=== PATIENT | female | born 1990 | race Caucasian/White ===

== ENCOUNTER 2023-07-05 09:32 | Outpatient (OUT) | payer OTHER, SELFPAY ==
[2023-07-05 09:57] LABS: Basophils Absolute Auto 0.1 10^3/uL (0.0-0.1); Basophils Percent Auto 0.9 % (0.2-2.0); Eosinophils Absolute Auto 0.3 10^3/uL (0.0-0.7); Eosinophils Percent Auto 3.1 % (0.9-7.0); Hematocrit 43.5 % (36.0-48.0); Hemoglobin 13.8 g/dL (12.0-16.0); Immature Granulocytes Abs Auto 0.03 10^3/uL (0.00-0.03); Immature Granulocytes Pct Auto 0.4 % (0.0-0.5); Lymphocytes Absolute Auto 2.3 10^3/uL (1.2-3.8); Mean Corpuscular HGB Conc 31.7 g/dL (29.9-35.2); Mean Corpuscular Hemoglobin 28.3 pg (26.7-34.0); Mean Corpuscular Volume 89.3 fL (81.0-99.0); Mean Platelet Volume 8.6 fL (9.5-13.5); Monocytes Absolute Auto 0.4 10^3/uL (0.3-0.8); Monocytes Percent Auto 5.3 % (1.7-12.0); Neutrophils Absolute Auto 5.1 10^3/uL (1.4-6.5); Neutrophils Percent Auto 62.3 % (43.0-75.0); Platelet Count 351 10^3/uL (150-450); Red Blood Count 4.87 10^6/uL (4.20-5.40); White Blood Count 8.1 10^3/uL (4.0-11.0)
[2023-07-05 10:13] LABS: Estimated Average Glucose 120 mg/dL; Glycohemoglobin A1C 5.8 % (4.5-6.2)
[2023-07-05 10:42] LABS: Alanine Aminotransferase 26 U/L (14-59); Albumin Globulin Ratio 1.1; Albumin Level 4.1 g/dL (3.4-5.0); Alkaline Phosphatase 64 U/L (46-116); Anion Gap 15.1; Aspartate Amino Transferase 14 U/L (15-37); BUN Creatinine Ratio 14.1; Bilirubin Total 0.3 mg/dL (0.2-1.0); Calcium 9.2 mg/dL (8.5-10.1); Carbon Dioxide 24.1 mmol/L (21.0-32.0); Chloride 105 mmol/L (98-107); Chol HDL Ratio 2.8; Cholesterol 153 mg/dL (<=200); Estimated GFR (African America >60 (>=60); Estimated GFR (Non-African Ame >60 (>=60); Globulin 3.8 g/dL; Glucose 99 mg/dL (74-106); HDL Cholesterol 54 mg/dL (40-60); LDL Cholesterol Calculated 88.6 mg/dL; Potassium 4.2 mmol/L (3.5-5.1); Sodium 140 mmol/L (136-145); Thyroid Stimulating Hormone 2.218 uIU/mL (0.358-3.740); Total Protein 7.9 g/dL (6.4-8.2); Triglycerides 52 mg/dL (<=150); VLDL CHOLESTEROL 10.4 mg/dL
[2023-07-06 04:10] LABS: Estradiol 50.4 pg/mL (.); FSH 9.7 mIU/mL (.)
== END 2023-07-05 09:33 | disposition home or self-care (01) ==
LOC: LAB 09:35
PROVIDERS: PCP Family Medicine; Visit Provider Family Medicine
DX: Z00.00 Encounter for general adult medical examination without abnormal findings (principal); Z78.0 Asymptomatic menopausal state
CPT/HCPCS: 36415; 80053; 80061; 82670; 83001; 83036; 84443; 85025

== ENCOUNTER 2023-08-03 21:15 | Outpatient (REF) | payer OTHER, SELFPAY ==
[2023-08-09 09:08] LABS: Age Gdln ACOG Testing Note (.); HPV Aptima Negative (Negative); IGP, Aptima HPV, rfx 16/18,45 Note (.)
== END 2023-08-03 21:16 | disposition home or self-care (01) ==
LOC: LAB 21:15
PROVIDERS: PCP Family Medicine; Visit Provider Obstetrics & Gynecology
DX: Z12.4 Encounter for screening for malignant neoplasm of cervix (principal)
CPT/HCPCS: G0145

== ENCOUNTER 2023-10-12 17:25 | Emergency (ER) | payer OTHER, SELFPAY ==
[2023-10-12] VITALS (23 sets, daily range): BP systolic 121–144; BP diastolic 81–97; PULSE 97–124; RESP 15–31; TEMP 36.6–38.1; O2SAT 95–98; BMI 37.4
--- NOTE | 2023-10-12 18:19 | XR_ITS ---
[facility] [id number] Patient Name: BUSHRA PEACE MRN: [id number] date: 1990 Sex: F Assigned Patient Location: ER Current Patient Location: ER Accession/Order Number: [id number] Exam Date: 10/12/2023 18:33 Report Date: 10/12/2023 19:15 At the request of: JAVED PARTIDA Procedure: XR chest 1V EXAMINATION: XR chest 1V, , 10/12/2023 6:33 PM EST INDICATION: cough, SOB HISTORY: Ordering Provider Reason for Exam: cough, SOB Technologist Note: Additional: COMPARISON: None. TECHNIQUE: Chest x-ray: One view. FINDINGS: No pneumothorax, pleural effusion or focal airspace consolidation. Heart is normal in size. Bony thorax is unremarkable. XR/XR chest 1V IMPRESSION: No acute cardiopulmonary process. Electronically authenticated by: VINAY WYNNE Date: 10/12/2023 19:15
--- NOTE | 2023-10-12 18:20 | ED_ITS ---
HPI - URI/Sore Throat General Chief Complaint: Upper Respiratory Infection Stated Complaint: Flu Like Symptoms Time Seen by Provider: 10/12/23 18:12 Source: patient Limitations: no limitations History of Present Illness HPI Narrative: 32 year old female presents to the ED for cough, SOB, body aches, fatigue, N/V. Onset was a few days ago. She was diagnosed with influenza B at an urgent care yesterday. Reports left chest discomfort with inspiration, cough. She is concerned about a ruptured AAA due to the pain; her father 2 years ago from a ruptured AAA. Denies abd pain, diarrhea. She presented febrile. States she was unable to keep her Tylenol down at home. Denies chance of . Related Data Previous Rx's Medication Instructions Recorded ondansetron 4 mg disintegrating 4 mg PO Q8H PRN nausea and 10/12/23 tablet vomiting 4 days #12 tabs Allergies Allergy/AdvReac Type Severity Reaction Status Date / Time No Known Drug Allergies Allergy Verified 10/12/23 17:28 Review of Systems ROS Constitutional Reports: fever, chills and fatigue Cardiovascular Denies: chest pain Respiratory Reports: shortness of breath and cough Gastrointestinal Reports: nausea and vomiting; Denies: abdominal pain or diarrhea Musculoskeletal Denies: back pain or neck pain Integumentary/Breast Denies: rash Neurological Reports: headache PFSH PFSH Social History Smoking status: Former smoker Exam Constitutional Vital Signs, click to edit/add: Last Vital Signs Temp 98 F 10/12/23 20:25 Pulse 103 H 10/12/23 20:50 Resp 28 H 10/12/23 20:50 BP 121/91 10/12/23 20:45 Pulse Ox 96 10/12/23 20:50 O2 Del Method Room Air 10/12/23 17:28 Common normals: no apparent distress and oriented x3 HENMT Face and sinus: normal facial exam Nose: external nose normal External ear: external ears normal Mouth: tongue normal; no drooling Other: MM dry Eye Common normals: conjunctivae normal and no scleral icterus Neck & C-Spine Common normals: supple Chest Chest: symmetrical chest wall rise Respiratory Effort & inspection: able to speak in complete sentences, symmetric chest movement and tachypneic Auscultation: diminished lung sounds Cardio Rate: tachycardic Rhythm: regular rhythm GI Common normals: soft to palpation and non-tender Neuro Common normals: oriented x3 Sensorium/orientation: awake and alert Speech: speech normal Course Vital Signs Vital signs: Vital Signs Temperature 100.6 F H 10/12/23 17:28 Pulse Rate 113 H 10/12/23 17:28 Respiratory Rate 20 10/12/23 17:28 Blood Pressure 136/97 H 10/12/23 17:28 Pulse Oximetry 98 10/12/23 17:28 Oxygen Delivery Method Room Air 10/12/23 17:28 Temperature 98 F 10/12/23 20:25 Pulse Rate 103 H 10/12/23 20:50 Respiratory Rate 28 H 10/12/23 20:50 Blood Pressure 121/91 10/12/23 20:45 Pulse Oximetry 96 10/12/23 20:50 Oxygen Delivery Method Room Air 10/12/23 17:28 MDM - URI/Sore Throat MDM Narrative Medical decision making narrative: Imaging was negative for acute findings. Laboratory studies were unremarkable. She was given IV fluids and medication with improvement. She requested to be discharged home. A prescription was provided for Zofran. Follow up with pcp for a recheck, further evaluation and treatment. Differential Diagnosis Differential diagnosis: Likely upper respiratory infection, viral infection and influenza Medical Records Attestation: I reviewed the patient's medical records. Lab Data Attestation: I reviewed the patient's lab results. Labs: Lab Results 10/12/23 Range/Units 18:25 WBC 8.4 (4.0-11.0) 10^3/uL RBC 4.91 (4.20-5.40) 10^6/uL Hgb 13.9 (12.0-16.0) g/dL Hct 44.9 (36.0-48.0) % MCV 91.4 (81.0-99.0) fL MCH 28.3 (26.7-34.0) pg MCHC 31.0 (29.9-35.2) g/dL RDW 12.2 (11.0-15.0) % Plt Count 301 (150-450) 10^3/uL MPV 9.3 L (9.5-13.5) fL Neut % (Auto) 77.1 H (43.0-75.0) % Lymph % (Auto) 14.4 L (20.5-60.0) % Mcdowell % (Auto) 6.5 (1.7-12.0) % Eos % (Auto) 1.1 (0.9-7.0) % Baso % (Auto) 0.5 (0.2-2.0) % Neut # (Auto) 6.5 (1.4-6.5) 10^3/uL Lymph # (Auto) 1.2 (1.2-3.8) 10^3/uL Mcdowell # (Auto) 0.5 (0.3-0.8) 10^3/uL Eos # (Auto) 0.1 (0.0-0.7) 10^3/uL Baso # (Auto) 0.0 (0.0-0.1) 10^3/uL Abs Immat Gran (auto) 0.03 (0.00-0.03) 10^3/uL Imm/Tot Granulo (auto) 0.4 (0.0-0.5) % Sodium 136 (136-145) mmol/L Potassium 3.7 (3.5-5.1) mmol/L Chloride 102 (98-107) mmol/L Carbon Dioxide 19.4 L (21.0-32.0) mmol/L Anion Gap 18.3 BUN 10.0 (7.0-18.0) mg/dL Creatinine 0.90 (0.55-1.02) mg/dL Est GFR ( Amer) >60 (>=60) Est GFR (Non-Af Amer) >60 (>=60) BUN/Creatinine Ratio 11.1 Glucose 96 (74-106) mg/dL Calcium 9.1 (8.5-10.1) mg/dL Imaging Data Chest x-ray: Attestation: I have reviewed the pertinent imaging results. Radiologist's impression: Procedure: XR chest 1V EXAMINATION: XR chest 1V, , 10/12/2023 6:33 PM EST INDICATION: cough, SOB HISTORY: Ordering Provider Reason for Exam: cough, SOB Technologist Note: Additional: COMPARISON: None. TECHNIQUE: Chest x-ray: One view. FINDINGS: No pneumothorax, pleural effusion or focal airspace consolidation. Heart is normal in size. Bony thorax is unremarkable. XR/XR chest 1V IMPRESSION: No acute cardiopulmonary process. Electronically authenticated by: VINAY WYNNE Date: 10/12/2023 19:15 CT scan - chest: Attestation: I have reviewed the pertinent imaging results. Radiologist's impression: Procedure: CT angio chest EXAMINATION: CHEST CT WITH CONTRAST (PULMONARY EMBOLISM PROTOCOL) Indication: SOB Technique: Spiral CT acquisition of the chest from the thoracic inlet to the upper abdomen following IV contrast. Maximum intensity projection (MIP)reconstructions were performed. All CT scans at this facility use dose modulation, iterative reconstruction, and/or weight based dosing when appropriate to reduce radiation dose to as low as reasonably achievable. Contrast: 100 mL of Omnipaque 350 IV Comparison: Chest radiograph 10/12/2023 RESULT: Limitations: None. Evaluation for thromboembolic disease: - Right heart chambers: No thromboembolic disease. - Main pulmonary arteries: No thromboembolic disease. - Lobar pulmonary arteries: No thromboembolic disease. - Segmental pulmonary arteries: No thromboembolic disease. - Subsegmental pulmonary arteries: No thromboembolic disease. Lines, tubes, and devices: None. Lung parenchyma and pleura: Mild mosaic attenuation in the mid to lower lung zones, likely secondary to small airways disease. No consolidation. No suspicious pulmonary nodule. No pleural effusion. Central airways are patent. Thoracic inlet, heart, and mediastinum: No lymphadenopathy in the axillary, mediastinal, or hilar regions. The thoracic aorta and main pulmonary artery are normal in caliber. The cardiac chambers are normal in size. No coronary artery atherosclerotic calcifications are noted, although the study is not optimized for coronary assessment. No pericardial effusion or thickening. Thyroid gland is unremarkable. Esophagus is nondilated. Bones and soft tissues: No destructive bone lesion. Chest wall is unremarkable. Upper abdomen: Hepatic steatosis. . CT/CT angio chest IMPRESSION: No CT evidence of pulmonary embolism or acute findings in the thorax. Mild mid to lower lung zone mosaic attenuation, likely secondary to small airways disease.. Electronically authenticated by: CALVIN CLAYTON Date: 10/12/2023 20:11 Discharge Plan Discharge Chief Complaint: Upper Respiratory Infection Clinical Impression: Influenza B, Nausea & vomiting Patient Disposition: Home, Self-Care Time of Disposition Decision: 21:28 Condition: Good Mode of Transportation: Private Vehicle Prescriptions / Home Meds: New ondansetron 4 mg tablet,disintegrating 4 mg PO Q8H PRN (Reason: nausea and vomiting) 4 Days Qty: 12 0RF Instructions: Influenza (ED), Acute Nausea and Vomiting (ED), Dyspnea (ED) Stand Alone Forms: Portal Instructions Referrals: Nena Ramos MD [Primary Care Provider] - As soon as possible
--- NOTE | 2023-10-12 18:56 | CT_ITS ---
The [address] [id number] Patient Name: BUSHRA PEACE MRN: [id number] date: 1990 Sex: F Assigned Patient Location: ER Current Patient Location: Accession/Order Number: [id number] Exam Date: 10/12/2023 19:29 Report Date: 10/12/2023 20:11 At the request of: JAVED PARTIDA Procedure: CT angio chest EXAMINATION: CHEST CT WITH CONTRAST (PULMONARY EMBOLISM PROTOCOL) Indication: SOB Technique: Spiral CT acquisition of the chest from the thoracic inlet to the upper abdomen following IV contrast. Maximum intensity projection (MIP)reconstructions were performed. All CT scans at this facility use dose modulation, iterative reconstruction, and/or weight based dosing when appropriate to reduce radiation dose to as low as reasonably achievable. Contrast: 100 mL of Omnipaque 350 IV Comparison: Chest radiograph 10/12/2023 RESULT: Limitations: None. Evaluation for thromboembolic disease: - Right heart chambers: No thromboembolic disease. - Main pulmonary arteries: No thromboembolic disease. - Lobar pulmonary arteries: No thromboembolic disease. - Segmental pulmonary arteries: No thromboembolic disease. - Subsegmental pulmonary arteries: No thromboembolic disease. Lines, tubes, and devices: None. Lung parenchyma and pleura: Mild mosaic attenuation in the mid to lower lung zones, likely secondary to small airways disease. No consolidation. No suspicious pulmonary nodule. No pleural effusion. Central airways are patent. Thoracic inlet, heart, and mediastinum: No lymphadenopathy in the axillary, mediastinal, or hilar regions. The thoracic aorta and main pulmonary artery are normal in caliber. The cardiac chambers are normal in size. No coronary artery atherosclerotic calcifications are noted, although the study is not optimized for coronary assessment. No pericardial effusion or thickening. Thyroid gland is unremarkable. Esophagus is nondilated. Bones and soft tissues: No destructive bone lesion. Chest wall is unremarkable. Upper abdomen: Hepatic steatosis. . CT/CT angio chest IMPRESSION: No CT evidence of pulmonary embolism or acute findings in the thorax. Mild mid to lower lung zone mosaic attenuation, likely secondary to small airways disease.. Electronically authenticated by: CALVIN CLAYTON Date: 10/12/2023 20:11
[2023-10-12] MEDS: 0.9 % SODIUM CHLORIDE 1,000 ML 999 ML IV (18:57)
[2023-10-12] MEDS: METHYLPREDNISOLONE SOD SUCC PF 125 MG/2 ML VIAL IM (18:57)
[2023-10-12] MEDS: ACETAMINOPHEN 500 MG TABLET 1000 MG PO (18:57)
[2023-10-12] MEDS: ONDANSETRON PF 4 MG/2 ML VIAL IV (18:57)
[2023-10-12 19:00] LABS: Basophils Percent Auto 0.5 % (0.2-2.0); Eosinophils Absolute Auto 0.1 10^3/uL (0.0-0.7); Eosinophils Percent Auto 1.1 % (0.9-7.0); Hematocrit 44.9 % (36.0-48.0); Hemoglobin 13.9 g/dL (12.0-16.0); Immature Granulocytes Abs Auto 0.03 10^3/uL (0.00-0.03); Immature Granulocytes Pct Auto 0.4 % (0.0-0.5); Lymphocytes Absolute Auto 1.2 10^3/uL (1.2-3.8); Lymphocytes Percent Auto 14.4 % (20.5-60.0); Mean Corpuscular Hemoglobin 28.3 pg (26.7-34.0); Mean Corpuscular Volume 91.4 fL (81.0-99.0); Mean Platelet Volume 9.3 fL (9.5-13.5); Monocytes Absolute Auto 0.5 10^3/uL (0.3-0.8); Monocytes Percent Auto 6.5 % (1.7-12.0); Neutrophils Absolute Auto 6.5 10^3/uL (1.4-6.5); Neutrophils Percent Auto 77.1 % (43.0-75.0); Platelet Count 301 10^3/uL (150-450); Red Blood Count 4.91 10^6/uL (4.20-5.40); Red Cell Distribution Width 12.2 % (11.0-15.0); White Blood Count 8.4 10^3/uL (4.0-11.0)
[2023-10-12 19:07] LABS: Anion Gap 18.3; BUN Creatinine Ratio 11.1; Calcium 9.1 mg/dL (8.5-10.1); Carbon Dioxide 19.4 mmol/L (21.0-32.0); Chloride 102 mmol/L (98-107); Estimated GFR (African America >60 (>=60); Estimated GFR (Non-African Ame >60 (>=60); Glucose 96 mg/dL (74-106); Potassium 3.7 mmol/L (3.5-5.1); Sodium 136 mmol/L (136-145)
[2023-10-12] MEDS: LORAZEPAM 2 MG/ML 1 ML VIAL 1 MG IV (19:15)
[2023-10-12] MEDS: METOCLOPRAMIDE HCL 10 MG/2 ML VIAL IVP (21:00)
[2023-10-12] MEDS: KETOROLAC TROMETHAMINE 30 MG/ML VIAL 15 MG IVP (21:00)
[2023-10-12] MEDS: DIPHENHYDRAMINE HCL 50 MG/ML (1ML) VIAL 25 MG IV (21:01)
--- NOTE | 2023-10-12 21:49 | ECG_ITS ---
The [facility] Test Date: 2023-10-12 Pat Name: BUSHRA PEACE Department: Room: - Gender: Female Key Account Coordinator: : 1990 Requested By: JAYMIE NAVA Order Number: [id number] Reading MD: CARLOS MANUEL PATEL Measurements Intervals Wallace Rate: 106 P: 67 OH: 136 QRS: 66 QRSD: 70 T: 270 QT: 280 QTc: 342 Interpretive Statements 1120 Sinus tachycardia [address] depression 4664 Twave abnormality, possible inferior ischemia 8305 Short QTc interval 9150 abnormal ECG No previous ECG available for comparison Electronically Signed On 10-14-2023 7:45:25 EST by CARLOS MANUEL PATEL
== END 2023-10-12 21:45 | disposition home or self-care (01) ==
PROVIDERS: Nurse Practitioner Family; Emergency Provider Emergency Medicine; PCP Family Medicine
DX: J10.1 Influenza due to other identified influenza virus with other respiratory manifestations (principal); R11.2 Nausea with vomiting, unspecified; Z87.891 Personal history of nicotine dependence
CPT/HCPCS: 36415; 71045; 71275; 80048; 85025; 93005; 96361; 96374; 96375; 99285; J2930; Q9967

== ENCOUNTER 2024-09-06 19:25 | Outpatient (REF) | payer BC, SELFPAY ==
--- OUTSIDE RECORDS SUMMARY | 2024-09-06 19:29 | XMS_ITS | CCD ---
Author Organization [facility] CliniSyfl Care Team Providers Care Sales Effectiveness Manager Name Role Phone Rosa Ayon Primary Care Physician Unavailab Panfilo Nagel Rounding Physician Unavailable KOBI TARIQ Referring Unavailable ROSA AYON Primary Care Unavailable RAMOS, DR NENA Hatfield Primary Care Unavailable RAMOS, DR NENA Hatfield Admitting Unavailable RAMOS, DR NENA Hatfield Attending Unavailable RAMOS, DR NENA Hatfield Consulting Unavailable RAMOS, DR NENA Hatfield Primary Care Unavailable PARK, DR REED Attending Unavailable PARK, DR REED Admitting Unavailable RAMOS, DR NENA Hatfield Primary Care Unavailable PARK, DR REED Attending Unavailable PARK, DR REED Consulting Unavailable PARK, DR REED Admitting Unavailable RAMOS, DR NENA Hatfield Primary Care Unavailable RAMOS, DR NENA Hatfield Admitting Unavailable RAMOS, DR NENA Hatfield Attending Unavailable RAMOS, DR NENA Hatfield Consulting Unavailable RAMOS, DR NENA Hatfield Admitting Unavailable RAMOS, DR NENA Hatfield Attending Unavailable RAMOS, DR NENA Hatfield Consulting Unavailable RAMOS, DR NENA Hatfield Primary Care Unavailable Ramos, Nena Unavailable DEREK NICK Attending Unavailable PARK, DEREK Attending Unavailable PARK, DEREK Attending Unavailable ISSAC CORONEL Attending Unavailable PARK, DEREK Attending Unavailable PARK, DEREK Attending Unavailable Allergies Allergy Classification Reported Allergen(s) Allergy Type Date of Onset Reaction(s) Facility (3 sources) hepatitis B virus vaccine; Translations: [Hepatitis B Virus Vaccine] Allergy to Substance 5 Anaphylaxis [facility] Repository (12 sources) hepatitis B immune globulin Drug Allergy Unknown [employer] Other (7 sources) Hepatitis B Immune Globulin *PASSIVE IMMUNIZING AN Propensity to adverse reactions 0 Unknown [employer] Other (7 sources) Allergies Reconciled Propensity to adverse reactions Unknown [employer] Other (7 sources) patient allergy list reviewed by nurse or physicia Propensity to adverse reactions Comment:Done [employer] Other Medications Current Medications Medication Drug Class(es) Dates Sig (Normalized) Sig (Original) [id number] 200 actuat albuterol 0.09 mg/actuat metered dose inhaler (2 sources) beta2-Adrenergic Agonist Start: 05-23-2024 take 1 puff(s) by inhalation every four to six hours Albuterol Sulfate Active 2 PUFF INHALATION EVERY 4-6 HOURS 8.5 May 23, 2024 12:00am ARIPiprazole 2 mg oral tablet (2 sources) Atypical Antipsychotic Start: 05-23-2024 take 1 tablet by mouth once daily Aripiprazole (Abilify) 2 mg tablet Active 2 MG PO Daily May 23, 2024 12:00am citalopram 20 mg oral tablet (16 sources) Serotonin Reuptake Inhibitor Start: 12-20-2022 take 1 tablet by mouth every twenty-four hours Citalopram Hydrobromide 20 MG 1 tablet Orally Once a day for 90 days Nov, Active Start: 04-25-2019 take 20 mg by mouth once daily Citalopram [Celexa] 20 MG Oral Daily April 25, 2019 Active Start: 04-25-2019 take 20 mg by mouth once daily Citalopram 20 MG Oral Daily April 25, 2019 Active Start: 04-25-2019 take 1 tablet by mikel once daily Citalopram (Celexa) 20 mg Tablet Active 20 MG PO Daily April 25, 2019 12:00am estradiol 1 mg oral tablet (1 source) Estrogen take 1 tablet by mouth every twenty-four hours Estradiol 1 MG 1 tablet once a day Active lisdexamfetamine dimesylate 20 mg oral capsule (7 sources) Central Nervous System Stimulant Start: 08-04-20 take 1 capsule by mouth once daily in the morning Vyvanse 20 MG take 1 capsule by mouth every morning for 30 Jul, Active Start: 06-27-2023 take 1 capsule by mo [facility] every twenty-four hours Vyvanse 20 MG 1 capsule in the morning Orally Once a day for 30 days Jun, Active Start: 04-20-2023 take 1 capsule by mo ut every twenty-four hours Vyvanse 10 MG 1 capsule in the morning Orally Once a day for 30 days March, Active methylPREDNISolone 4 mg oral tablet (1 source) Corticosteroid Start: 11-29-2023 methylPREDNISolone 4 MG as directed Orally for 6 days Nov, Active montelukast 10 mg oral tablet (3 sources) Leukotriene Receptor Antagonist Start: 05-23-2024 End: 06-19-2024 take 1 tablet by mouth once daily at bedtime Montelukast (Singulair) 10 mg tablet Active 10 MG PO Daily at bedtime June 19, 2024 4:25pm pantoprazole 40 mg delayed release oral tablet (8 sources) Proton Pump Inhibitor Start: 05-23-2024 End: 06-19-2024 take 40 mg by mouth once daily Pantoprazole Active 40 MG PO Daily June 19, 2024 4:25pm Start: 02-28-2024 End: 05-23-2024 take 1 tablet by mouth once daily Pantoprazole Discontinued 0 .ROUTE .COMPLEX February 28, 2024 8:36am May 23, 2024 11:06am take 1 tablet by mouth once daily Start: 02-25-2024 End: 02-28-2024 take 40 mg by mouth once daily Pantoprazole Discontinu ed 40 MG PO Daily February 25, 2024 12:00am February 28, 2024 8:37am take 1 tablet by mikel every twenty-four hours Pantoprazole Sodium 40 MG 1 tablet Orally Once a day for 90 days Active phentermine hydrochloride 37.5 mg oral tablet (8 sources) Sympathomimetic Amine Anorectic Start: 05-23-2024 take 37.5 mg by mouth once daily Phentermine Active 37.5 MG PO Daily May 23, 2024 12:00am Start: 03-10-2023 take 1 capsule by mo ut every twenty-four hours Adipex-P 37.5 MG 1 capsule Orally Once a day for 30 days Feb, Active Start: 02-10-2023 take 1 capsule by mo ut every twenty-four hours Adipex-P 37.5 MG 1 capsule Orally Once a day for 30 days Jan, Active Start: 02-28-2023 take 1 capsule by mo ut every twenty-four hours Adipex-P 37.5 MG 1 capsule Orally Once a day for 30 days Dec, Active tiZANidine 4 mg oral tablet (1 source) Central alpha-2 Adrenergic Agonist take 1 tablet by mouth every eight hours tiZANidine HCl 4 MG 1 tablet as needed Orally Three times a day for 10 days Active Completed/Discontinued Medications Medication Drug Class(es) Dates Sig (Normalized) Sig (Original) amoxicillin 875 mg / clavulanate 125 mg oral tablet (2 sources) Penicillin-class Antibacterial Start: 05-23-2024 End: 08-27-2024 take 1 tablet by mouth twice daily Amoxicillin-Pot Clavulanate Discontinued 1 TAB PO Twice daily May 23, 2024 12:00am August 27, 2024 9:35am esomeprazole 20 mg delayed release oral tablet (4 sources) Proton Pump Inhibitor Start: 04-25-2019 take 20 mg by mouth once daily Esomeprazole Magnesium 20 MG Oral Daily April 25, 2019 Active Start: 04-25-2019 take 20 mg by mouth once daily Esomeprazole Magnesium 20 MG Oral Daily April 25, 2019 Active Start: 04-25-2019 End: 05-23-2024 take 20 mg by mouth once daily Esomeprazole Magnesium Discontinued 20 MG PO Daily April 25, 2019 12:00am May 23, 2024 11:06am etonogestrel 68 mg drug implant (4 sources) Progestin Start: 04-25-2019 Etonogestrel [ Nexplanon] 1 IMPLANT Subdermal Once April 25, 2019 Active Start: 04-25-2019 Etonogestrel 1 IMPLANT Subdermal Once April 25, 2019 Active Start: 04-25-2019 End: 05-23-2024 Etonogestrel (Nexplanon) 68 mg Implant Discontinued 1 IMPLANT SUBDERMAL Once April 25, 2019 12:00am May 23, 2024 11:06am Problems Active Problems Problem Classification Problem Date Documented Date Episodic/Chronic Abdominal pain (14 sources) Abdominal pain; Translations: [Unspecified abdominal pain] Episodic Adjustment disorders (15 sources) Stress and adjustment reaction; Translations: [Reaction to severe stress, unspecified] Chronic Anxiety disorders (20 sources) Anxiety attack ; Translations: [Panic disorder [episodic paroxysmal anxiety]] Onset: 10-05-2018 Chronic Asthma (8 sources) Cough variant asthma; Translations: [Cough variant asthma] 05-23-2024 Chronic Bacterial infection; unspecified site (7 sources) Infection by methicillin sensitive Staphylococcus aureus; Translations: [Methicillin susceptible Staphylococcus aureus infection, unspecified site] Episodic Cancer of cervix (7 sources) Cervicovaginal cytology: High grade squamous intraepithelial lesion or carcinoma; Translations: [High grade squamous intraepithelial lesion on cytologic smear of cervix (HGSIL)] Episodic Cancer of other female genital organs (12 sources) High grade squamous intraepithelial lesion on vaginal Papanicolaou smear; Translations: [High grade squamous intraepithelial lesion on cytologic smear of vagina (HGSIL)] Episodic Contraceptive and procreative management (19 sources) Removal of subcutaneous contraceptive; Translations: [Encounter for surveillance of implantable subdermal contraceptive] Episodic Diseases of white blood cells (19 sources) Leukocytosis; Translations: [Elevated white blood cell count, unspecified] Chronic Disorders usually diagnosed in infancy, childhood, or adolescence (19 sources) Adult attention deficit hyperactivity disorder ; Translations: [Other specified behavioral and emotional disorders with onset usually occurring in childhood and adolescence] Chronic Endometriosis (19 sources) Endometriosis, unspecified; Translations: [Endometriosis] Chronic Esophageal disorders (20 sources) Gastroesophageal reflux disease; Translations: [Gastro-esophageal reflux disease without esophagitis] Onset: 10-09-2018 Chronic Esophageal disorders (6 sources) Esophageal disorders; Translations: [Gastro-esophageal reflux disease with esophagitis, without bleeding] Essential hypertension (20 sources) Essential hypertension; Translations: [Essential (primary) hypertension] Onset: 04-27-2019 Chronic Malaise and fatigue (19 sources) Fatigue; Translations: [Other fatigue] Episodic Menopausal disorders (19 sources) Menopausal symptom; Translations: [Menopausal and female climacteric states] Chronic Menstrual disorders (14 sources) Dysmenorrhea; Translations: [Dysmenorrhea, unspecified] Chronic Miscellaneous mental health disorders (7 sources) Emotional state finding; Translations: [Other symptoms and signs involving emotional state] Episodic Mood disorders (20 sources) Depressive disorder; Translations: [Other specified depressive episodes] Onset: 10-05-2018 Chronic Mycoses (14 sources) Onychomycosis due to dermatophyte ; Translations: [Tinea unguium] Episodic Nonmalignant breast conditions (20 sources) Breast lump; Translations: [Unspecified lump in unspecified breast] Episodic Nutritional deficiencies (7 sources) Vitamin D deficiency; Translations: [Vitamin D deficiency, unspecified] Onset: 10-05-2018 Chronic Other complications of ; puerperium affecting management of mother (7 sources) Complication of the puerperium; Translations: [Other complications of the puerperium, not elsewhere classified] Episodic Other complications of (7 sources) Supervision of high risk with poor obstetric history; Translations: [Supervision of with other poor reproductive or obstetric history, second trimester] Episodic Other complications of (14 sources) High risk ; Translations: [Supervision of high risk , unspecified, second trimester] Episodic Other complications of (7 sources) Urinary tract infection in ; Translations: [Unspecified infection of urinary tract in , unspecified trimester] Episodic Other female genital disorders (7 sources) Dyspareunia; Translations: [Unspecified dyspareunia] Chronic Other female genital disorders (7 sources) Abnormal uterine bleeding; Translations: [Abnormal uterine and vaginal bleeding, unspecified] Chronic Other female genital disorders (7 sources) 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 ; Translations: [Recurrent loss] Episodic Other lower respiratory disease (7 sources) Cough; Translations: [Cough, unspecified] Episodic Other non-traumatic joint disorders (19 sources) Shoulder joint pain; Translations: [Pain in right shoulder] Episodic Other nutritional; endocrine; and metabolic disorders (20 sources) Body mass index 30+ - obesity; Translations: [Body mass index (BMI) 39.0-39.9, adult] Chronic Other nutritional; endocrine; and metabolic disorders (19 sources) Obesity; Translations: [Other obesity due to excess calories] Onset: 01-12-2022 Chronic Other nutritional; endocrine; and metabolic disorders (3 sources) Other obesity due to excess calories Chronic Other nutritional; endocrine; and metabolic disorders (2 sources) Body mass index (BMI) 39.0-39.9, adult Chronic Other nutritional; endocrine; and metabolic disorders (1 source) Body mass index (BMI) 37.0-37.9, adult Chronic Other nutritional; endocrine; and metabolic disorders (20 sources) Obese class II; Translations: [Body mass index (BMI) 39.0-39.9, adult] Onset: 10-09-2018 Chronic Other and delivery including normal (14 sources) care; Translations: [Encounter for supervision of normal , unspecified, unspecified trimester] Resolved: 04-08-2017 Episodic Other screening for suspected conditions (not mental disorders or infectious disease) (18 sources) Encounter for screening for malignant neoplasm of cervix; Translations: [Abnormal histological findings in specimens from other organs, systems and tissues] Onset: 12-30-2021 Episodic Other upper respiratory disease (7 sources) Seasonal allergic rhinitis; Translations: [Other seasonal allergic rhinitis] Onset: 10-05-2018 Chronic Other upper respiratory infections (1 source) Acute maxillary sinusitis; Translations: [Acute maxillary sinusitis, unspecified] 05-23-2024 Episodic Residual codes; unclassified (7 sources) Postprocedural state finding; Translations: [Other specified postprocedural states] Episodic Residual codes; unclassified (7 sources) Symptom: generalized; Translations: [Other general symptoms and signs] Episodic Residual codes; unclassified (7 sources) History of drug therapy; Translations: [Personal history of other drug therapy] Episodic Residual codes; unclassified (7 sources) Tobacco user; Translations: [Tobacco use] Episodic Residual codes; unclassified (7 sources) Gestation period, 18 weeks; Translations: [18 weeks gestation of ] Episodic Spondylosis; intervertebral disc disorders; other back problems (7 sources) Cervical disc disorder; Translations: [Cervical disc disorder, unspecified, unspecified cervical region] Onset: 10-05-2018 Chronic Sprains and strains (1 source) Strain of muscle and tendon of back wall of thorax, initial encounter Episodic Substance-related disorders (7 sources) Opioid abuse; Translations: [Opioid abuse, uncomplicated] Onset: 10-05-2018 Chronic Unclassified (3 sources) CONTACT W/AND (SUSP) EXPOS COVID-19; Translations: [CONTACT W/AND (SUSP) EXPOS COVID-19] Onset: 11-30-2021 Viral infection (8 sources) COVID-19; Translations: [Disease caused by 2019-nCoV] Onset: 12-16-2021 Past or Other Problems Problem Classification Problem Date Documented Date Episodic/Chronic Allergic reactions (7 sources) Inflammatory dermatosis; Translations: [Dermatitis, unspecified] Onset: 10-05-2018 Episodic Calculus of urinary tract (7 sources) Kidney stone; Translations: [Calculus of kidney] Onset: 10-05-2018 Episodic Conditions associated with dizziness or vertigo (7 sources) Dizziness and giddiness; Translations: [Dizziness and giddiness] Resolved: 04-08-2017 Episodic Diabetes mellitus without complication (7 sources) Abnormal glucose level; Translations: [Other abnormal glucose] Resolved: 04-08-2017 Episodic Hemorrhage during ; abruptio placenta; placenta previa (7 sources) Low lying placenta; Translations: [Low lying placenta NOS or without hemorrhage, second trimester] Resolved: 04-08-2017 Episodic Immunizations and screening for infectious disease (8 sources) Encounter for screening for human papillomavirus (HPV); Translations: [Exposure to sexually transmissible disorder] Onset: 01-04-2022 Resolved: 05-23-2019 Episodic Inflammatory diseases of female pelvic organs (7 sources) Acute vaginitis; Translations: [Acute vaginitis] Resolved: 04-08-2017 Episodic Nausea and vomiting (7 sources) Nausea and vomiting; Translations: [Nausea with vomiting, unspecified] Resolved: 04-08-2017 Episodic Other aftercare (7 sources) History and physical examination, follow-up; Translations: [Encounter for follow-up examination after completed treatment for conditions other than malignant neoplasm] Resolved: 01-10-2020 Episodic Other complications of (7 sources) Finding related to ; Translations: [Other specified related conditions, unspecified trimester] Resolved: 04-08-2017 Episodic Other connective tissue disease (7 sources) Bilateral impingement syndrome of shoulders; Translations: [Impingement syndrome of unspecified shoulder] Onset: 10-05-2018 Episodic Other connective tissue disease (7 sources) Fibromyalgia; Translations: [Fibromyalgia] Onset: 10-05-2018 Episodic Other female genital disorders (7 sources) Other specified conditions associated with female genital organs and menstrual cycle; Translations: [Oth cond assoc w female genital organs and menstrual cycle] Onset: 10-05-2018 Episodic Other nervous system disorders (7 sources) Paresthesia; Translations: [Paresthesia of skin] Onset: 10-05-2018 Episodic Other nutritional; endocrine; and metabolic disorders (7 sources) Abnormal weight gain; Translations: [Abnormal weight gain] Onset: 01-12-2022 Episodic Other skin disorders (7 sources) Acne vulgaris; Translations: [Acne vulgaris] Onset: 10-05-2018 Episodic Residual codes; unclassified (1 source) Other general symptoms and signs; Translations: [OTHER GENERAL SYMPTOMS AND SIGNS] Onset: 12-16-2021 Episodic Residual codes; unclassified (7 sources) Complication occurring during ; Translations: [Personal history of other complications of , childbirth and the puerperium] Resolved: 04-08-2017 Episodic Residual codes; unclassified (7 sources) Insomnia; Translations: [Insomnia, unspecified] Onset: 10-05-2018 Episodic Spontaneous (7 sources) Miscarriage without complication; Translations: [Complete or unspecified spontaneous without complication] Resolved: 04-08-2017 Episodic Unclassified (1 source) CONTACT W/AND (SUSP) EXPOS COVID-19; Translations: [CONTACT W/AND (SUSP) EXPOS COVID-19] Onset: 12-15-2021 Unclassified (7 sources) Other eosinophilia; Translations: [Other eosinophilia] Unclassified (7 sources) Acute candidiasis of vulva and vagina; Translations: [Acute candidiasis of vulva and vagina] Resolved: 04-08-2017 Results Test Name Value Interpretation Reference Range Facility Hep B Surf [facility] 06-18-2022 Hep B Surf Ab <3.50 Normal <10 [facility] Comment on above: Result Comment: REFERENCE RANGE: <10.0 NON-REACTIVE/NOT IMMUNE >=10.0 REACTIVE/IMMUNE Performed By: #### R UBI, AHBS, VZI, LYDIA, GEORGE #### [facility] [address] [place] [id number] Grinding Wheel Dresser: River Rees MD Measles (Rubeola) Imon 06-18 Measles (Rubeola) Im 5.99 Normal >1.09 [facility] Comment on above: Result Comment: Interpretation: IMMUNE Reference Range: <0.91 Not Immune 0.91-1.09 Equivocal >1.09 Immune Performed By: #### R UBI, AHBS, VZI, LYDIA, GEORGE #### [facility] [address] [place], [place] [id number] Grinding Wheel Dresser: River Rees MD Mumps,Immun,Abon 06-18-2022 Mumps,Immun,Ab 4.59 Normal >1.09 [facility] Comment on above: Result Comment: Interpretation: IMMUNE Reference Range: <0.91 Not Immune 0.91-1.09 Equivocal >1.09 Immune Performed By: #### R UBI, AHBS, VZI, LYDIA, GEORGE #### [facility] [employer] [facility] [address] [place] [address] Grinding Wheel Dresser: River Rees MD Rubella Ab, IgGon 06-18-2022 Rubella Ab, IgG 114.3 IU/mL Normal [facility] Comment on above: Result Comment: REFERENCE RANGE: <5.0 NON-REACTIVE (non-immune) 5.0 TO 9.9 EQUIVOCAL >=10.0 REACTIVE (immune) Performed By: #### R UBI, AHBS, VZI, LYDIA, GEORGE #### [facility] [employer] [address] [place] [id number] Grinding Wheel Dresser: River Rees MD VZ Immunityon 06-18-2022 VZ Immunity 2.59 Normal >1.09 [facility] Comment on above: Result Comment: Interpretation: IMMUNE Reference Range: <0.91 Not Immune 0.91-1.09 Equivocal >1.09 Immune Performed By: #### R UBI, AHBS, VZI, LYDIA, GEORGE #### [address] [address] Grinding Wheel Dresser: River Rees MD PAP ACOG PANEL 2: 30 to 65on 01-06-2022 . . Normal [facility] Comment on above: Result Comment: Performed at: WB Performed By: #### [id number] #### [facility] [address] [place] [address] Dr. Malka Parks Age Gdln ACOG Testing 30-65 [facility] Comment on above: Performed By: #### [id number] #### [facility] [address] [place] [address] Dr. Malka Parks DIAGNOSIS: Comment [facility] Comment on above: Result Comment: NEGATIVE FOR INTRAEPITHE LIAL LESION OR MALIGNANCY. Performed at: WB Performed By: #### [id number] #### [facility] [address] [place] [address] Dr. Malka Parks HPV Aptima Positive Abnormal Negative [facility] Comment on above: Result Comment: This nucleic acid amplif ication test detects fourteen high-risk HPV types (16,18,31,33,35,39,45,51,52,56,58,59,66,68) without differentiation. Performed at: =G Performed By: #### [id number] #### [facility] [address] [address] [address] Malka Parks HPV Genotype 16 Negative Normal Negative [facility] Comment on above: Result Comment: Performed at: =G Performed By: #### [id number] #### [facility] [address] [address] [address] Malka Parks HPV Genotype 18,45 Negative Normal Negative [facility] Comment on above: Result Comment: Performed at: =G Performed By: #### [id number] #### [facility] [address] [place] [address] Dr. Malka aPrks Methodology: Comment Normal [facility] Comment on above: Result Comment: This liquid based ThinPr ep(R) pap test was screened with the use of an image guided system. Performed at: WB Performed By: #### [id number] #### [facility] [address] [address] [address] Malka Parks Note: Comment Normal [facility] Comment on above: Result Comment: The Pap smear is a scree wendi test designed to aid in the detection of premalignant and malignant conditions of the uterine cervix. It is not a diagnostic procedure and should not be used as the sole means of detecting cervical cancer. Both false-positive and false-negative reports do occur. . Performed at: WB Performed By: #### [id number] #### [facility] [address] [address] [address] Malka Parks Performed by: Comment Normal [facility] Comment on above: Result Comment: Joyce Zapata [employer] ogjulian (ASCP) Performed at: WB Performed By: #### [id number] #### [facility] [address] [place] [address] Dr. Malka Parks Specimen adequacy: Comment Normal [facility] Comment on above: Result Comment: Satisfactory for evaluat ion. No endocervical component is identified. Performed at: WB Performed By: #### [id number] #### [facility] [address] [place] [address] Dr. Malka Parks Covid-19 PCR ([facility])on 11-22 SARS-CoV-2 (COVID-19) RNA YAJAIRA+probe Ql (Unsp spec) Detected Critically abnormal NOT DETECTED [facility] Comment on above: Result Comment: This test is not yet hannah roved or cleared by the [place] FDA. When there are no FDA-approved or cleared tests available, and other criteria are met, FDA can make tests available under an emergency access mechanism called an Emergency Use Authorization (EUA). The EUA for this test is supported by the [employer] Stamp Maker of Health and Human Service's (HHS's) declaration that circumstances exist to justify the emergency use of in vitro diagnostics for the detection and/or diagnosis of the virus that causes COVID-19. This EUA will remain in effect (meaning this test can be used) for the duration of the COVID-19 declaration justifying emergency of IVDs, unless it is terminated or revoked by FDA (after which the test may no longer be used). Performed By: #### C [id number] #### [facility] Laboratory [address] [place] [address] Dr. Malka Parks INFLUENZA A AND B AGon 12-15 [facility] SEE BELOW Normal [facility] Comment on above: Result Comment: Negative for Flu A prote in angiten. Infection due to Flu A cannot be ruled out. Flu A angiten in the sample may be below the detection limit of the test. Performed By: #### I NFLUAB #### [facility] [address] [place] [address] Dr. Malka Parks INFLUBNEG SEE BELOW Normal [facility] Comment on above: Result Comment: Negative for Flu B prote in antigen. Infection due to Flu B cannot be ruled out. Flu B antigen in the sample may be below the detection limit of the test. Performed By: #### I NFLUAB #### [facility] [address] [place] [address] Dr. Malka Parks INFLUENZA A AG Negative Normal NEGATIVE SEE COMMENT [facility] Comment on above: Performed By: #### INFLUAB #### [facility] [address] [place] [address] Dr. Malka Parks INFLUENZA B AG Negative Normal NEGATIVE SEE COMMENT [facility] Comment on above: Performed By: #### INFLUAB #### [facility] [address] [place] [address] Dr. Malka Parks INTERNAL CONTROLS Within Normal Limits Normal Within Normal Limits [facility] Comment on above: Performed By: #### INFLUAB #### [facility] [address] [place] [address] Dr. Malka Parks Covid-19 PCR (CVDTBH)on SARS-CoV-2 (COVID-19) RNA YAJAIRA+probe Ql (Unsp spec) Not detected Normal NOT DETECTED [facility] Comment on above: Result Comment: This test is not yet hannah roved or cleared by the [place] FDA. When there are no FDA-approved or cleared tests available, and other criteria are met, FDA can make tests available under an emergency access mechanism called an Emergency Use Authorization (EUA). The EUA for this test is supported by the [place] of Health and Human Service's (HHS's) declaration that circumstances exist to justify the emergency use of in vitro diagnostics for the detection and/or diagnosis of the virus that causes COVID-19. This EUA will remain in effect (meaning this test can be used) for the duration of the COVID-19 declaration justifying emergency of IVDs, unless it is terminated or revoked by FDA (after which the test may no longer be used). When diagnostic testing is negative, the possibility of a false negative should be considered in the context of a patient's recent exposures and the presence of clinical signs and symptoms consistent with SARS-CoV-2. Performed By: #### C VDTBH #### [facility] [address] [place] [address] Dr. Malka Parks Covid-19 PCR (CVDTBH)on SARS-CoV-2 (COVID-19) RNA YAJAIRA+probe Ql (Unsp spec) Not detected Normal NOT DETECTED [facility] Comment on above: Result Comment: This test is not yet hannah roved or cleared by the [place] FDA. When there are no FDA-approved or cleared tests available, and other criteria are met, FDA can make tests available under an emergency access mechanism called an Emergency Use Authorization (EUA). The EUA for this test is supported by the [place] of Health and Human Service's (HHS's) declaration that circumstances exist to justify the emergency use of in vitro diagnostics for the detection and/or diagnosis of the virus that causes COVID-19. This EUA will remain in effect (meaning this test can be used) for the duration of the COVID-19 declaration justifying emergency of IVDs, unless it is terminated or revoked by FDA (after which the test may no longer be used). When diagnostic testing is negative, the possibility of a false negative should be considered in the context of a patient's recent exposures and the presence of clinical signs and symptoms consistent with SARS-CoV-2. Performed By: #### [facility] #### [facility] [address] [place] [address] Dr. Malka Parks Vital Signs Date Time Vital Sign Value Performing Clinician Facility 08-27-2024 09:45-0400 Body height 165.1 cm [facility] 08-27-2024 09:45-0400 Body mass index (BMI) [Ratio] 36.1 kg/m2 [facility] 08-27-2024 09:45-0400 Body weight 98.65 kg [facility] 08-27-2024 09:45-0400 Diastolic blood pressure 82 mm[Hg] [facility] 08-27-2024 09:45-0400 Heart rate 77 /min [facility] 08-27-2024 09:45-0400 Respiratory rate 14 /min [facility] 08-27-2024 09:45-0400 SaO2% (BldA) [Mass fraction] 97 % [facility] 08-27-2024 09:45-0400 Systolic blood pressure 126 mm[Hg] [facility] 05-23-2024 11:03-0400 Body height 165.1 cm [facility] 05-23-2024 11:03-0400 Body mass index (BMI) [Ratio] 34.2 kg/m2 [facility] 05-23-2024 11:03-0400 Body temperature 97.8 [degF] [facility] 05-23-2024 11:03-0400 Body weight 93.44 kg [facility] 05-23-2024 11:03-0400 Diastolic blood pressure 78 mm[Hg] [facility] 05-23-2024 11:03-0400 Systolic blood pressure 118 mm[Hg] [facility] 11-29-2023 09:15-0500 Body height 165.1 cm Nena Ramos Other [facility] [employer] Other 11-29-2023 09:15-0500 Body mass index (BMI) [Ratio] 37.34 kg/m2 Nena Ramos Other [facility] [employer] Other 11-29-2023 09:15-0500 Body weight 101.79 kg Nena Ramos Other [facility] Other 11-29-2023 09:15-0500 Diastolic blood pressure 87 mm[Hg] Nena Ramos Other [facility] Other 11-29-2023 09:15-0500 Systolic blood pressure 125 mm[Hg] Nena Ramos Other [facility] Other 07-05-2023 09:00-0400 Body height 165.1 cm Nena Ramos Other [facility] Other 07-05-2023 09:00-0400 Body mass index (BMI) [Ratio] 37.77 kg/m2 Nena Ramos Other [facility] Other 07-05-2023 09:00-0400 Body weight 102.97 kg Nena Ramos Other [facility] Other 07-05-2023 09:00-0400 Diastolic blood pressure 94 mm[Hg] Nena Ramos Other [facility] Other 07-05-2023 09:00-0400 Systolic blood pressure 135 mm[Hg] Nena Ramos Other [facility] Other 03-10-2023 16:45-0400 Body height 165.1 cm Nena Ramos Other [facility] Other 03-10-2023 16:45-0400 Body mass index (BMI) [Ratio] 37.6 kg/m2 Nena Ramos Other [facility] Other 03-10-2023 16:45-0400 Body weight 102.51 kg Nena Ramos Other [facility] Other 03-10-2023 16:45-0400 Diastolic blood pressure 88 mm[Hg] Nena Ramos Other [facility] Other 03-10-2023 16:45-0400 SaO2% (BldA) [Mass fraction] 97 % Nena Ramos Other [facility] Other 03-10-2023 16:45-0400 Systolic blood pressure 136 mm[Hg] Nena Ramos Other [facility] Other 02-10-2023 16:45-0400 Body height 165.1 cm Nena Ramos Other [facility] Other 02-10-2023 16:45-0400 Body mass index (BMI) [Ratio] 39.43 kg/m2 Nena Ramos Other [facility] Other 02-10-2023 16:45-0400 Body weight 107.5 kg Nena Ramos Other [facility] Other 02-10-2023 16:45-0400 Diastolic blood pressure 78 mm[Hg] Nena Ramos Other [facility] Other 02-10-2023 16:45-0400 SaO2% (BldA) [Mass fraction] 98 % Nena Ramos Other [facility] Other 02-10-2023 16:45-0400 Systolic blood pressure 124 mm[Hg] Nena Ramos Other [facility] Other 01-18-2023 15:45-0500 Body height 165.1 cm Nena Ramos Other [facility] Other 01-18-2023 15:45-0500 Body mass index (BMI) [Ratio] 39.6 kg/m2 Nena Ramos Other [facility] Other 01-18-2023 15:45-0500 Body weight 107.96 kg Nena Ramos Other [facility] Other 01-18-2023 15:45-0500 Diastolic blood pressure 78 mm[Hg] Nena Ramos Other [facility] Other 01-18-2023 15:45-0500 SaO2% (BldA) [Mass fraction] 98 % Nena Ramos Other [facility] Other 01-18-2023 15:45-0500 Systolic blood pressure 118 mm[Hg] Nena Ramos Other [facility] Other 04-25-2019 14:26-0400 Body Temperature 97.7 [degF] Rosa Hoy [facility] 04-25-2019 14:26-0400 BP Diastolic 90 mm[Hg] [facility] 04-25-2019 14:26-0400 BP Systolic 132 mm[Hg] [facility] 04-25-2019 14:26-0400 Pulse (Heart Rate) 90 /min [facility] 04-25-2019 14:26-0400 Pulse Oximetry 98 % [facility] 04-25-2019 14:26-0400 Respiratory Rate 20 /min [facility] Weight [facility] NEGATED: Highlighted row BMI (Body Mass Index) [facility] NEGATED: Highlighted row Height [facility] Encounters Encounter Date Encounter Type Care Provider Facility Start: 08-27-2024 End: 08-27-2024 ambulatory [facility] Work Phone: Start: 08-27-2024 End: 08-27-2024 Patient encounter procedure [facility] Work Phone: Start: 05-23-2024 End: 05-23-2024 ambulatory [facility] Work Phone: Start: 05-23-2024 End: 05-23-2024 Patient encounter procedure [facility] Work Phone: Start: 05-17-2024 End: 05-17-2024 ambulatory DEREK PARK Not Available Start: 04-17-2024 End: 04-17-2024 ambulatory DEREK PARK Not Available Start: 03-19-2024 End: 03-19-2024 ambulatory ISSAC CORONEL Not Available Start: 02-25-2024 Non-patient / Non-visit [facility] [employer] Work Phone: Start: 02-13-2024 End: 02-13-2024 ambulatory DEREK PARK Not Available Start: 01-16-2024 End: 01-16-2024 ambulatory DEREK PARK Not Available Start: 12-19-2023 End: 12-19-2023 ambulatory DEREK PARK Not Available Start: 11-29-2023 End: 11-29-2023 ambulatory Nena Ramos Other [facility] Other Start: 11-29-2023 Office outpatient vi sit 15 minutes Nena Ramos [facility] Start: 08-04-2023 End: 08-04-2023 ambulatory Nena Ramos Other [facility] Other Start: 08-04-2023 Telephone encounter Nena Ramos [facility] Start: 07-22-2023 End: 07-22-2023 ambulatory Nena Ramos Other [facility] Other Start: 07-22-2023 Telephone encounter Nena Rachel [facility] Start: 07-13-2023 End: 07-13-2023 ambulatory Nena Ramos Other [facility] Other Start: 07-13-2023 Telephone encounter Nena Rachel [facility] Start: 07-06-2023 End: 07-06-2023 ambulatory Nena Ramos Other [facility] Other Start: 07-06-2023 Telephone encounter Nena Rachel [facility] Start: 07-05-2023 End: 07-05-2023 ambulatory Nena Ramos Other [facility] Other Start: 07-05-2023 Encounter for genera l adult medical examination without abnormal findings Nena Ramos [facility] Start: 07-05-2023 Periodic preventive med est patient 18-39 yrs Nena Rachel [facility] Start: 06-27-2023 End: 06-27-2023 ambulatory Nena Ramos Other [facility] Other Start: 06-27-2023 Telephone encounter Nena Ramos [facility] Start: 04-20-2023 End: 04-20-2023 ambulatory Nena Ramos Other [facility] Other Start: 04-20-2023 Telephone encounter Nena Ramos [facility] Start: 03-10-2023 End: 03-10-2023 ambulatory Nena Ramos Other [facility] Other Start: 03-10-2023 Office outpatient vi sit 10 minutes Nena Rachel [facility] Start: 02-10-2023 End: 02-10-2023 ambulatory Nena Ramos Other [facility] Other Start: 02-10-2023 Office outpatient vi sit 10 minutes Nena Ramos [facility] Start: 01-18-2023 End: 01-18-2023 ambulatory Nena Ramos Other [facility] Other Start: 01-18-2023 Office outpatient vi sit 15 minutes Nena Ramos [facility] Start: 12-20-2022 End: 12-20-2022 ambulatory Nena Ramos Other [facility] Other Start: 12-20-2022 Telephone encounter Nena Ramos [facility] Start: 09-22-2022 Adult health examination Dee grimm Rachel Other [facility] Other Start: 09-22-2022 Gynecological examination normal Nena Rachel Other [facility] Other Start: 11-02-2022 History of abnormal cervical Papanicolaou smear Nena Ramos Other [facility] Other Start: 06-17-2022 End: 06-18-2022 ambulatory [facility] Start: 12-31-[address] NENA RAMOS Facil ity:H1 Start: 12-30-2021 End: 12-30-[address] NENA RAMOS Facility:[facility] Start: 12-15-2021 End: 12-15-[address] NENA RAMOS Facility:[facility] Start: 11-25-2021 End: 11-25-[address] NENA RAMOS Facility:[facility] Start: 11-23-2021 End: 11-23-[address] NENA RAMOS Facility:[facility] Start: 05-23-2019 End: 05-23-2019 Pre-procedure evaluation check Nena Ramos Other [facility] Other Start: 04-25-2019 End: 04-25-2019 Emergency department patient visit [facility] Start: 08-21-2018 End: 08-21-2018 Patient encounter procedure [facility] Start: 03-26-2013 End: 03-27-2013 Evaluation and management of inpatient [facility] Procedures Date Procedure Procedure Detail Performing Clinician Start: 06-28-2019 Health examination o f sub-group Nena Ramos Other End: 04-08-2017 screening Nena Ramos Other End: 05-23-2019 Contraception care education Nena Ramos Other End: 05-23-2019 Counseling Nena Ramos Other Depression screening Nena Ramos Other Hysterectomy Nena Ramos Other Viral screening Nena Ramos Other Immunizations Immunization Date Immunization Notes Care Provider Fa cili 06-18-2018 diphtheria, tetanus toxoids and acellular pertussis vaccine, unspecified formulation Nena Ramos Other [facility] 07-20-1993 diphtheria, tetanus toxoids and acellular pertussis vaccine, unspecified formulation Nena Ramos Other [facility] 02-22-1992 diphtheria, tetanus toxoids and acellular pertussis vaccine, unspecified formulation Nena Ramos Other [facility] 02-22-1992 haemophilus influenz ae type b vaccine, conjugate unspecified formulation Nena Ramos Other [facility] 02-22-1992 measles, mumps and rubella virus vaccine Nena Ramos Other [facility] Payers Date Payer Category Payer Private Health Insurance [id number] 1989 Unknown [id number] 1989 Unknown [id number] 1989 Unknown [id number] 1989 Unknown [id number] 1989 Unknown [id number] 1989 Unknown [id number] 1989 Unknown [id number] 1989 Unknown [id number] [id number] 1989 Unknown [id number] [id number] 1989 Unknown [id number] [id number] 1989 Unknown [id number] [id number] 1989 Unknown [id number] 1960 Medicaid [id number] 1960 Unknown [id number] 1960 Unknown [id number] Private Health Insurance T TV2 [id number] Self-pay Unknown [id number] Unknown Yolanda BC/BS [id number] Social History Date Type Detail Facility Unknown if ever smoked [facility] Other Sex Assigned At Sex Assigned At Bir th [employer] Other Start: 05-23-2024 Tobacco smoking status NHIS Ex-smoker (finding) [facility] Start: 1990 Sex Assigned At Female F [facility] Evaluation note 11-29-2023 Note Date & Type Note Facility 11-29-2023 Evaluation note Encounter Date Diagnosis Assessment Notes Nov, Strain of rhomboid muscle, initial encounter (ICD-10 - S29.012A) Order printed for PT. Add steroids and muscle relaxer. Agree w massotherapy and frequent stretching Nov, GERD (gastroesopha geal reflux disease) (ICD-10 - K21.9) Pt requests to switch from omeprazole to pantoprazole [employer] Other Evaluation note 07-05-2023 Note Date & Type Note Facility 07-05-2023 Evaluation note Encounter Date Diagnosis Assessment Notes Jun, Well adult exam (ICD-10 - Z00.00) We have discussed the necessity of following up with PCP regularly as well as specialists, as needed. Discussed F/U with dentistry and optometry at least yearly. Discussed all preventative measures/ cancer screenings as applicable to this patient. Emphasized the importance of a reduced fat, low carb diet to promote heart health and controlled blood sugars. Reviewed social history and ensured patient is safe within the home today. Pt denies any abuse of alcohol, nicotine, caffeine or recreational drugs. I have ensured patient is of stable mental and physical health today. We have discussed appropriate F/U schedule as well as blood work and vaccinations that apply. All questions answered and patient is sent home pleased, without concerns. Jun, Adjustment disorder with depressed mood (ICD-10 - F43.21) Shital will set up appt w counselor Chronic issue well controlled with present medication - refilled. [facility] Other Evaluation note 03-10-2023 Note Date & Type Note Facility 03-10-2023 Evaluation note Encounter Date Diagnosis Assessment Notes Feb, Other obesity due to excess calories (ICD-10 - E66.09) Patient has clearly made a good destiny effort for several months on her own to lose weight with little success. Pt to continue Adipex daily for third month. Medication is a stimulant. May cause you to be jittery or constipated. Take in the morning, may also take stool softener daily as needed. Continue to eat a healthy well balanced diet and continue work-up regimine. Pt aware that this is not a cure for obesity but a tool used to help them during their weight loss plateau. Pt aware that they need to continue to work hard at weight loss or the weight will be regained. Side effects discussed and understood. Any onset of SOB, CP, mood changes, tachycardia, HTN, headaches, blurred vision occur, go to ER and Follow-up with our office immediately. Feb, Body mass index [BMI] 37.0-37.9, adult (ICD-10 - Z68.37) [facility] Other Evaluation note 02-10-2023 Note Date & Type Note Facility 02-10-2023 Evaluation note Encounter Date Diagnosis Assessment Notes Jan, Body mass index [BMI] 39.0-39.9, adult (ICD-10 - Z68.39) Patient has clearly made a good destiny effort for several months on her own to lose weight with little success. Pt to start Adipex daily. Medication is a stimulant. May cause you to be jittery or constipated. Take in the morning, may also take stool softener daily as needed. Continue to eat a healthy well balanced diet and continue work-out regimine. Pt aware that this is not a cure for obesity but a tool used to help them during their weight loss plateau. Pt aware that they need to continue to work hard at weight loss or the weight will be regained. Side effects discussed and understood. Pt education printed and discussed. Pt notified of prescribing schedule with 30 day dispensing, no refills, for up to 12 weeks, with a 6 month break in-between treatments. Id SOB, CP, mood changes, tachycardia, HTN, headaches, blurred vision occur, go to ER and Follow-up with me immediately. Jan, Other obesity due to excess calories (ICD-10 - E66.09) [facility] Other Evaluation note 01-18-2023 Note Date & Type Note Facility 01-18-2023 Evaluation note Encounter Date Diagnosis Assessment Notes Dec, Other obesity due to excess calories (ICD-10 - E66.09) Patient has clearly made a good destiny effort for several months on her own to lose weight with little success. Pt to start Adipex daily. Medication is a stimulant. May cause you to be jittery or constipated. Take in the morning, may also take stool softener daily as needed. Continue to eat a healthy well balanced diet and continue work-out regimine. Pt aware that this is not a cure for obesity but a tool used to help them during their weight loss plateau. Pt aware that they need to continue to work hard at weight loss or the weight will be regained. Side effects discussed and understood. Pt education printed and discussed. Pt notified of prescribing schedule with 30 day dispensing, no refills, for up to 12 weeks, with a 6 month break in-between treatments. Id SOB, CP, mood changes, tachycardia, HTN, headaches, blurred vision occur, go to ER and Follow-up with me immediately. Dec, Body mass index [BMI] 39.0-39.9, adult (ICD-10 - Z68.39) Dec, Other depression (ICD-10 - F32.89) Discussed SAD, grief reaction, and other factors. Opts to continue same med/dose. 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) Medical History Menopausal symptom Medical History Nexplanon removal Medical History Anxiety attack Medical History Elevated white blood cell count Medical History Acute pain of right shoulder Medical History Depressed mood Medical History Acute breast pain Medical History Depression with anxiety Medical History Adult attention deficit disorder Medical History Gastroesophageal ref lux disease with esophagitis without hemorrhage Medical History Endometriosis Medical History Breast lump Medical History Fatigue Surgical History colonoscopy X2 Surgical History EGD X2 Surgical History DX LAPAROSCOPY Surgical History SALPINGECTOMY - BILATERAL Surgical History Hysterectomy 05/2019 Hospitalization History SEE SURGICAL HX [facility] Other Chief Complaint and Reason for Visit Encounter Admit Date Chief Complaint Reason for V isit Departed Emergency April 25, 2019 12:17pm ANXIETY Chief Complaint Amb Documentation chest cold//discuss poss inhaler Chief Complaint R Shoulder Pain/Med Adjust Summary Purpose Family History Relationship Condition Age at Onset Recorded Date/T varsha father Unknown Advance Directives Advance Directive Response Recorded Date/ Time Advance Directives No August 22, 2018 1:10pm Additional Source Comments INFORMATION SOURCE (unrecogn ized section and content) DATE CREATED AUTHOR 06/21/2022 [facility] DATE CREATED AUTHOR AUTHOR'S ORGANIZ ATION 09/24/2022 [facility] DATE CREATED AUTHOR AUTHOR'S ORGANIZ ATION 05/18/2024 [facility] EPIC REASON FOR VISIT (unrecogniz ed section and content) RefillMed Check UpMed Check Up1 month Follow upmedicationRefillWellnesslab resultsResultslabsrefillneck pain Care Teams (unrecognized sec tion and content) Team Status: Active Member Role Status Dates Rosa Ayon MD Primary Care Provider Active Team Status: Inactive Member Role Status Dates Rosa M Hoy , MD Primary Care Provider Active Start: August 27, 2024 End: August 27, 2024 Nena Ramos MD Attending Provider Active St art: August 27, 2024 End: August 27, 2024 Team Status: Active Member Role Status Mikaela Ayon MD Primary Care Provider Active Team Status: Active Member Role Status Mikaela Ayon MD Primary Care Provider Active Start: February 25, 2024 JAE Johnson Attending Provider Active Start : February 25, 2024 Team Status: Inactive Member Role Status Mikaela Ayon MD Primary Care Provider Active Start: May 23, 2024 End: May 23, 2024 Nena Ramos MD Attending Provider Active St art: May 23, 2024 End: May 23, 2024 Team Status: Inactive Member Role Status Mikaela Ayon MD Primary Care Provider Active Start: August 27, 2024 End: August 27, 2024 Nena Ramos MD Attending Provider Active St art: August 27, 2024 End: August 27, 2024 Goals (unrecognized section and content) Goals may be documented in a n alternate section FOR RECORDS PERTAINING TO PATIENTS WHO ARE OR HAVE BEEN ENROLLED IN A CHEMICAL DEPENDENCY/SUBSTANCEABUSE PROGRAM, SOME INFORMATION MAY BE OMITTED. This clinical summary was aggregated from multiple sources. Caution should be exercised in using it in the provision of clinical care. This summary normalizes information from multiple sources, and as a consequence, information in this document may materially change the coding, format and clinical context of patient data. In addition, data may be omitted in some cases. CLINICAL DECISIONS SHOULD BE BASED ON THE PRIMARY CLINICAL RECORDS. [employer] provides no warranty or guarantee of the accuracy or completeness of information in this document.
[2024-09-13 13:08] LABS: Age Gdln ACOG Testing Note (.); HPV Aptima Negative (Negative); IGP, Aptima HPV, rfx 16/18,45 Note (.)
== END 2024-09-06 19:26 | disposition home or self-care (01) ==
LOC: LAB 19:25
PROVIDERS: PCP Family Medicine; Visit Provider Obstetrics & Gynecology
DX: Z01.419 Encounter for gynecological examination (general) (routine) without abnormal findings (principal)
CPT/HCPCS: 87624; 88175

== ENCOUNTER 2025-08-28 07:54 | Outpatient (OUT) | payer BC, SELFPAY ==
--- OUTSIDE RECORDS SUMMARY | 2025-08-28 07:55 | XMS_ITS | Clinical Summary ---
Author Organization [facility] [employer] [facility] tem Address [id number] [address] [place] [address] Care Team Providers Care Recreation Technician Name Role Phone Nena Ramos MD Primary Care Provider [phone] Allergies Active Allergy Reactions Criticality Noted Date Comments Hepatitis A And B Virus Vaccin 11/26 Medications citalopram (CeleXA) 20 mg tablet Take 20 mg by mouth daily. Active esomeprazole (NexIUM) 40 mg capsule Take 40 mg by mouth every morning before breakfast. Active fluticasone propionate (FLOVENT HFA) 110 mcg/actuation inhaler Inhale 2 puffs 2 (two) times a day. Active albuterol (PROVENTIL HFA;VENTOLIN HFA) 90 mcg/actuation inhaler Inhale 1-2 puffs every 6 (six) hours as needed for wheezing. 1 Inhaler 12/09/2019 Active azithromycin (ZITHROMAX) 250 mg tablet Take 1 tablet daily 4 days 4 tablet 12/28/2019 Active Encounters Date Type Department Care Team Description 07/30/2025 6:14 PM EDT - 07/30/2025 7:38 PM EDT Emergency [facility] - Emergency [address] [place] [address] Kyrie Rea MD Chest pain, unspecified type (Primary Dx); Anxiety Discharge Disposition: Home 07/30/2025 Travel from Last 3 Months Social History Tobacco Use Types Packs/Day Years Used Date Smoking Tobacco: Every Day Smokeless Tobacco: Never Childcare Answer Date Recorded Childcare Unknown 05/02/2019 Employment Answer Date Recorded Employment Unknown 05/02/2019 Hunger Screening Answer Date Recorded Within the past 12 months we worried whether our food would run out before we got money to buy more. Never True 07/30/2025 Within the past 12 months th e food we bought just didn't last and we didn't have money to get more. Never True 07/30/2025 Purpose - Life Answer Date Recorded Purpose and direction in life Unknown Comments No Sex and Gender Information Value Date Recorded Sex Assigned at Not on file Legal Sex Female 11:41 AM EDT Gender Identity Not on file Sexual Orientation Not on file Last Filed Vital Signs Vital Sign Reading Time Taken Comments Blood Pressure 140/90 07/30/2025 7:32 PM EDT Pulse 96 07/30/2025 7:32 PM EDT Temperature 36.4 C (97.6 F) 07/30/2025 6:18 PM EDT Respiratory Rate 14 07/30/2025 7:32 PM EDT Oxygen Saturation 98% 07/30/2025 7:32 PM EDT Inhaled Oxygen Concentration - - Weight 102.1 kg (225 lb) 07/30/2025 6:14 PM EDT Height 162.6 cm (5' 4 ) 07/30/2025 6:14 PM EDT Body Mass Index 38.62 07/30/2025 6:14 PM EDT Plan of Treatment Health Maintenance Due Date Last Done Comments Tobacco Counseling 1989 Depression Screening 2001 Adult BMI Follow Up Plan 2007 Influenza Vaccine 07/22/2025 09/07/2018, , 09/22/2016 Adult BMI Screening 07/30/2026 07/30/2025 Tobacco Screening 07/30/2026 07/30/2025 DTaP,Tdap and Td Vaccines (2 - Td or Tdap) 06/18/2028 06/18/2018 Medical Devices Not on file Procedures Procedure Name Priority Date/Time Associated Diagnosis Comments B-TYPE NATRIURETIC PEPTIDE STAT 07/30/2025 6:39 PM EDT D-DIMER STAT 07/30/2025 6:39 PM EDT TROPONIN I, HIGH SENSITIVITY 0 HOUR STAT 07/30/2025 6:39 PM EDT COMPREHENSIVE METABOLIC PANEL STAT 07/30/2025 6:39 PM EDT CBC WITH AUTO DIFFERENTIAL STAT 07/30/2025 6:39 PM EDT TROPONIN I, HIGH SENSITIVITY 0 HOUR STAT 07/30/2025 6:39 PM EDT ECG 12-LEAD STAT 07/30/2025 6:16 PM EDT from Last 3 Months Results * Troponin I, High Sensitivity 0 Hour (07/30/2025 6:39 PM EDT) [facility] TROPONIN I, HIGH SENSITIVITY <2 <16 ng/L 07/30/2025 7:25 PM EDT [facility] Blood Venous blood / Unknown Venipuncture / Unknown 07/30/2025 6:39 PM EDT 07/30/2025 6:48 PM EDT us Kyrie Rea MD LAB BLOOD ORDERABLES Final Resu lt [facility] [address] [place] [address], * (ABNORMAL) CBC auto differential (07/30/2025 6:39 PM EDT) [facility] WBC 14.9(H) 4 - 11 x10E9/L 07/30/2025 6:55 PM EDT [facility] RBC Count 4.71 3.8 - 5.2 X10E12/L 07/30/2025 6:55 PM EDT [facility] Hemoglobin 13.0 11.7 - 15.5 g/dL 07/30/2025 6:55 PM EDT [facility] Hematocrit 40.2 35 - 47 % 07/30/2025 6:55 PM EDT [facility] MCV 85 80 - 100 fL 07/30/2025 6:55 PM EDT [facility] MCH 27.6 27 - 34 pg 07/30/2025 6:55 PM EDT [facility] MCHC 32.3 32 - 36 g/dL 07/30/2025 6:55 PM EDT [facility] RDW 13.2 11.5 - 15 % 07/30/2025 6:55 PM EDT [facility] Platelet Count 375 150 - 450 X10E9/L 07/30/2025 6:55 PM EDT [facility] MPV 7.0 7 - 12 fL 07/30/2025 6:55 PM EDT [facility] Neutrophils % 66.4 % 07/30/2025 6:55 PM EDT [facility] Lymphocytes % 23.2 % 07/30/2025 6:55 PM EDT [facility] Monocytes % 5.7 % 07/30/2025 6:55 PM EDT [facility] Eosinophils % 3.3 % 07/30/2025 6:55 PM EDT [facility] Basophils % 1.4 % 07/30/2025 6:55 PM EDT [facility] Neutrophils Absolute (A) 9.9(H) 1.5 - 6.6 10*3/uL 07/30/2025 6:55 PM EDT [facility] Lymphocytes Absolute 3.4 1.0 - 3.5 10*3/uL 07/30/2025 6:55 PM EDT [facility] Monocytes Absolute 0.8 0.0 - 0.9 10*3/uL 07/30/2025 6:55 PM EDT [facility] Eosinophils Absolute 0.5(H) 0.0 - 0.4 10*3/uL 07/30/2025 6:55 PM EDT [facility] Basophils Absolute 0.2 0.0 - 0.2 10*3/uL 07/30/2025 6:55 PM EDT [facility] Differential Type AUTOMATED DIFFERENTIAL 07/30/2025 6:55 PM EDT [facility] Blood Venous blood / Unknown Venipuncture / Unknown 07/30/2025 6:39 PM EDT 07/30/2025 6:49 PM EDT us Kyrie Rea MD LAB BLOOD ORDERABLES Final Resu lt Performing Organization Address City/[facility] Co de Phone Number [address] [place] [address], [place] * D-Dimer (07/30/2025 6:39 PM EDT) D DIMER <150 1 - 255 ng/mL 07/30/2025 7:08 PM EDT [facility] Comment:Results <255 ng/mL D DU: The presensence of a VTE can safely be excluded with a negative D-Dimer result and Wells score. A negative result doesn't exclude the possibility of DIC. The test should be repeated along with other diagnostic tests if the patient's symptoms persist or worsen. Blood Venous blood / Unknown Venipuncture / Unknown 07/30/2025 6:39 PM EDT 07/30/2025 6:49 PM EDT us Kyrie Rea MD LAB BLOOD ORDERABLES Final Resu lt Performing Organization Address [facility] Co de Phone Number [address] [place] [address], [place] * B-type natriuretic peptide (07/30/2025 6:39 PM EDT) BNP 10 <=100 pg/mL 07/30/2025 7:26 PM EDT [facility] Blood Venous blood / Unknown Venipuncture / Unknown 07/30/2025 6:39 PM EDT 07/30/2025 6:49 PM EDT us Kyrie Rea MD LAB BLOOD ORDERABLES Final Resu lt Performing Organization Address City/[facility]/ZIP Co de Phone Number [address] [place] [address], [place] * (ABNORMAL) Comprehensive metabolic panel (07/30/2025 6:39 PM EDT) SODIUM 140 134 - 146 mmol/L 07/30/2025 7:18 PM EDT [facility] POTASSIUM 3.7 3.5 - 5.0 mmol/L 07/30/2025 7:18 PM EDT [facility] CHLORIDE 110(H) 98 - 109 mmol/L 07/30/2025 7:18 PM EDT [facility] CARBON DIOXIDE 23 22 - 32 mmol/L 07/30/2025 7:18 PM EDT [facility] ANION GAP 7 5 - 15 mmol/L 07/30/2025 7:18 PM EDT [facility] BLOOD UREA NITROGEN 15 5 - 23 mg/dL 07/30/2025 7:18 PM EDT [facility] CREATININE 0.94 0.40 - 1.00 mg/dL 07/30/2025 7:18 PM EDT [facility] Comment:METHOD TRACEABLE TO IDMS STANDARD GLUCOSE 103(H) 65 - 99 mg/dL 07/30/2025 7:18 PM EDT [facility] CALCIUM 9.1 8.5 - 10.5 mg/dL 07/30/2025 7:18 PM EDT [facility] TOTAL PROTEIN 6.9 6.0 - 8.0 g/dL 07/30/2025 7:18 PM EDT [facility] ALBUMIN 3.7 3.2 - 5.3 g/dL 07/30/2025 7:18 PM EDT [facility] ALKALINE PHOSPHATASE 53 39 - 130 U/L 07/30/2025 7:18 PM EDT [facility] AST 27 <=41 U/L 07/30/2025 7:18 PM EDT [facility] ALT 39(H) <=31 U/L 07/30/2025 7:18 PM EDT [facility] BILIRUBIN,TOTAL 0.4 0.3 - 1.2 mg/dL 07/30/2025 7:18 PM EDT [facility] EGFR Non-Race Dependent 81 >=60 ml/min/1.7 3sq.m 07/30/2025 7:18 PM EDT [facility] Comment: eGFR not reported due to non-numeric value for Creatinine. Reported eGFR is based on the CKD-EPI 2020 equation that does not use a race coefficient. Blood Venous blood / Unknown Venipuncture / Unknown 07/30/2025 6:39 PM EDT 07/30/2025 6:48 PM EDT Kyrie Rea MD LAB BLOOD ORDERABLES Final Resu lt Performing Organization Address City/[facility]/ZIP Co de Phone Number [facility] [address] [place] [address], * ECG 12 lead (07/30/2025 6:16 PM EDT) 07/30/2025 6:16 PM EDT Kyrie Rea MD ECG ORDERABLES Final Result [facility] from Last 3 Months Insurance ANTHEM Care Teams Recreation Technician Relationship Specialty Start Date End Date Nena Ramos MD [facility] [place] [address] PCP - General Family Medicine 07/30/25
--- OUTSIDE RECORDS SUMMARY | 2025-08-28 07:55 | XMS_ITS | Clinical Summary ---
Author Organization [facility] Healthcare Address [address] [place] [address] Care Team Providers Care Zigzag Elastic Attacher Name Role Phone Nena Ramos MD Primary Care Provider [phone] Allergies Active Allergy Reactions Criticality Noted Date Comments Hepatitis A Vaccine 11/26/2017 Hepatitis B Virus Vaccines 08/27/2024 Other Reaction(s): Anaphylaxis Medications citalopram (CeleXA) 20 MG tablet Take 20 mg by mouth in the morning. Active pantoprazole (ProtoNix) 40 MG EC tablet Take 40 mg by mouth Daily 01/03/2024 Active ARIPiprazole (Abilify) 2 MG tabletIndication s:Depression, unspecified depression type,Menopausal symptoms,Hot flashes due to surgical menopause Take 1 tablet (2 mg) by mouth Daily 30 tablet 6 04/02/2024 Active albuterol HFA 90 mcg/act inhaler EVERY 4-6 HOURS 05/23/2024 Active amphetamine-dext roamphetamine XR (Adderall XR) 15 MG 24 hr capsule 08/27/2024 Ac tive montelukast (Singulair) 10 MG tablet Daily at bedtime 06/19/2024 Active ARIPiprazole (Abilify) 5 MG tablet 08/27/2024 Active metFORMIN XR (Glucophage-XR) 500 MG 24 hr tabletIndication s:Insulin resistance Take 1 tablet (500 mg) by mouth in the evening. Take with meals Do not crush, chew, or split. 30 tablet 11 09/06/2024 Active Active Problems Problem Noted Date Diagnosed Date Superior glenoid labrum lesion of right shoulder 12/25/2024 Biceps tendinitis on right 12/25/2024 Family History Medical History Relation Name Comments No Known Problems Father Depression Mother Hypertension Mother Relation Name Status Comments Father Alive Mother Social History Tobacco Use Types Packs/Day Years Used Date Smoking Tobacco: Never Assessed Comments No Sex and Gender Information Value Date Recorded Sex Assigned at Female 07/27/2023 12:54 PM EDT Legal Sex Female 7:14 PM EDT Gender Identity Female 07/27/2023 12:54 PM EDT Sexual Orientation Not on file Last Filed Vital Signs Vital Sign Reading Time Taken Comments Blood Pressure 122/78 09/06/2024 10:35 AM EDT Pulse - - Temperature - - Respiratory Rate - - Oxygen Saturation - - Inhaled Oxygen Concentration - - Weight 97.1 kg (214 lb 1.9 oz) 09/06/2024 10:35 AM EDT Height 165.1 cm (5' 5 ) 08/03/2023 4:24 PM EDT Body Mass Index 35.63 08/03/2023 4:24 PM EDT Plan of Treatment Upcoming Encounters Date Type Department Care Team (Late st Contact Info) Description 09/16/2025 10:00 AM EDT Office Visit [facility] [address] [place] [address] Samson Truong DO [address] [place] [address] Insurance BS Care Teams Zigzag Elastic Attacher Relationship Specialty Start Date End Date Nena Ramos MD PCP - General 07/27/23
--- NOTE | 2025-08-28 08:46 | PC.NURSE ---
Nursing Note Cardiac Stress Test Reviewed: Medication, allergies and patient history reviewed. Stress Test: [x ] Patient tolerated stress test well. [ ] Patient unable to tolerate walking on treadmill. Switched to Lexiscan stress test. [x ] No chest pain noted per patient [ ] Chest pain that resolved prior to leaving stress lab. [ ] No dyspnea noted. [x ] Dyspnea that resolved prior to leaving stress lab. [x ] Patient left stress lab asymptomatic and hemodynamically stable. [ ] Patient taken to the Emergency Room due to non-resolving symptoms following stress test. [x ] Patient achieved target heart rate. [ ] Patient unable to achieve target heart rate. [ ] Aminophylline administered as reversal agent to Lexiscan (Regadenoson). [ ] Nitro administered. Nursing Comments:
--- NOTE | 2025-08-30 18:05 | PM.STRESS ---
Stress Test Stress Test Allergies Allergy/AdvReac Type Severity Reaction Status Date / Time No Known Drug Allergies Allergy Verified 10/12/23 17:28 Requesting physician: Nena Ramos Procedure: Treadmill EKG stress test General Information: Reason for Stress Test: [Chest pain] Cardiac History and Risk Factors: [Smoking] Resting 12 - Lead Electrocardiogram: Resting twelve-lead EKG showed normal sinus rhythm, heart rate 94 bpm, normal EKG. Resting blood pressure 116/82 mmHg Patient was exercised according to standard Samuel protocol and she was able to finish 6 minutes and 23 seconds consistent with stage III achieving max METS of 8.1 and peak heart rate of 164 bpm which represents 88% of max age-predicted heart rate and peak blood pressure of 142/98 mmHg. Exercise was terminated secondary to achievement of target heart rate. The patient was short of breath at peak exercise but she did not experience any chest, neck, jaw or arm discomfort. Patient was monitored for 6 minutes into recovery phase with heart rate back to 102 bpm and blood pressure to 120/86 mmHg EKG during exercise, at peak exercise, and during recovery phase did not show any significant T or ST changes, rare isolated PVCs were noted Stress Test: Protocol: [Samuel] Exercise Capacity: [Normal] Blood Pressure Response: [Normal resting blood pressure with appropriate response] Rhythm: [Rare PVCs] ST - Response: [No ST changes] Patient Response: [No chest pain] Interpretation: Maximal stress test achieving 88% of age-predicted maximum heart rate Good exercise tolerance Normal heart rate and blood pressure response to exercise The stress test is negative for exercise-induced ischemic symptoms, EKG changes, or arrhythmias. Amaya score 6 consistent with low cardiac risk Saleem Cee MD, FACC
== END 2025-08-28 07:55 | disposition home or self-care (01) ==
LOC: CARD 07:54
PROVIDERS: PCP Family Medicine; Visit Provider Family Medicine
DX: R07.9 Chest pain, unspecified (principal)
CPT/HCPCS: 93017